=== PATIENT | female | born 1980 | race Caucasian/White ===

== ENCOUNTER 2025-11-05 14:37 | Emergency (ER) | payer OTHER, MEDICAID ==
[~2025-11-05] VITALS: Ht 162.6 cm; Wt 82.0 kg
[~2025-11-05 14:37] MED LIST: LEVO-65 MT; PROT20 MT
[2025-11-05 14:48] VITALS: O2SAT 99
[2025-11-05] MEDS: KETOROLAC 15MG/ML VIAL IM ONE (18:43)
[2025-11-05] MEDS: LIDOCAINE 5% PATCH TOP SCH (18:43)
[2025-11-05] MEDS ORDERED: IBUP-1455 MT (18:50)
[2025-11-05] MEDS ORDERED: LIDO-53 TP (18:50)
[2025-11-05 20:00] VITALS: BP 125/51; PULSE 79; RESP 18; TEMP 37.1; O2SAT 98
== END 2025-11-05 20:26 | disposition home or self-care (01) ==
LOC: ER 14:37
DX: M25.522 Pain in left elbow (principal); M54.6 Pain in thoracic spine; M25.572 Pain in left ankle and joints of left foot; J45.909 Unspecified asthma, uncomplicated; E11.9 Type 2 diabetes mellitus without complications; Z90.49 Acquired absence of other specified parts of digestive tract; Z79.899 Other long term (current) drug therapy; V03.10XA Pedestrian on foot injured in collision with car, pick-up truck or van in traffic accident, initial encounter; Y93.89 Activity, other specified; Y92.89 Other specified places as the place of occurrence of the external cause; Y99.8 Other external cause status
CPT/HCPCS: 81025; 73080; 73610; 73630; 96372; 99284; J1885; Z7610